=== PATIENT | male | born 1945 | race Caucasian/White ===

== ENCOUNTER 2017-05-29 07:45 | Day surgery (SDC) | payer OTHER ==
[~2017-05-29] VITALS: Ht 177.8 cm; Wt 98.0 kg
[~2017-05-29 07:45] MED LIST: ACTOPLUS MET1 TABLE1 PO; ADULT LOW DOSE81 M1 PO; ALTACE10 MG PO; AMLODIPINE BESYL5 MG PO; ASPIR-LOW81 MG PO; CRESTOR10 MG PO; Dilaudid PO; GLIMEPIRIDE4 MG PO; GLIPIZIDE10 M1 PO; IMDUR60 MG PO; ISOSORBIDE MONO30 MG PO; JANUVIA100 MG PO; METFORMIN HCL500 MG PO; METFORMIN PO; METOPROLOL TAR100 MG PO; NITROSTAT0.4 MG SL; PANTOPRAZOLE SO40 MG PO; PIOGLITAZONE PO; PLAVIX75 MG PO; TRADJENTA5 MG PO; ZETIA10 MG PO
[2017-05-29 16:20] VITALS: BP 159/95
[2017-05-29 17:41] VITALS: BP 144/75
[2017-05-29 21:13] VITALS: BP 147/75
[2017-05-30 00:17] VITALS: BP 118/57
[2017-05-30 05:27] LABS: BASOPHIL (%) 0.2 % (0-1); EOSINOPHIL (%) 2.2 % (0-5); EOSINOPHIL COUNT 0.1 K/uL (0-0.3); HEMATOCRIT 33.6 % (38.0-50.0); HEMOGLOBIN 11.4 G/DL (12.5-16.6); IMMATURE GRANULOCYTE (%) 0.2 % (0.0-0.7); LYMPHOCYTE (%) 24.9 % (15-42); MCH 29.5 PG (29.0-34.0); MCHC 33.9 G/DL (30.0-36.0); MCV 86.8 FL (86-99); MONOCYTE (%) 9.4 % (3-12); MONOCYTE COUNT 0.4 K/uL (0-0.8); NEUTROPHIL (%) 63.1 % (45-76); NEUTROPHIL COUNT 2.6 K/uL (1.8-6.4); PLATELET COUNT 150 K/uL (156-360); RBC DIS.WIDTH-CV 13.1 % (11.8-14.6); RBC DIS.WIDTH-SD 41.1 % (39-53); RED BLOOD COUNT 3.87 M/uL (4.00-5.50); WHITE BLOOD COUNT 4.1 K/uL (4.1-10.2)
[2017-05-30 05:55] LABS: CHLORIDE 108 MEQ/L (99-109); CREATININE 1.1 MG/DL (0.6-1.3); GFR ESTIMATE (CALCULATED) > 59 mL/min/ (58.99-99999); GLUCOSE 105 mg/dL (70-99); POTASSIUM 4.2 MEQ/L (3.7-5.4); SODIUM 139 MEQ/L (136-147); UREA NITROGEN (BUN) 17 mg/dL (9-23)
[2017-05-30 05:58] VITALS: BP 133/63
[2017-05-30 09:06] VITALS: BP 169/74
[2017-05-30] MEDS ORDERED: LOPRESSOR50 MG PO (10:15)
== END 2017-05-30 11:24 | disposition home or self-care (01) ==
LOC: CATH 07:45 → 2SOUTH 13:29 → 4EAST 13:29 → 2SOUTH 13:29 → ENRESERV 13:35 → 4EAST 16:06
PROVIDERS: Internal Medicine Cardiovascular Disease
DX: I25.10 Atherosclerotic heart disease of native coronary artery without angina pectoris (principal); E11.9 Type 2 diabetes mellitus without complications; I10 Essential (primary) hypertension; E78.5 Hyperlipidemia, unspecified; I35.0 Nonrheumatic aortic (valve) stenosis; I49.3 Ventricular premature depolarization; Z95.1 Presence of aortocoronary bypass graft; Z79.02 Long term (current) use of antithrombotics/antiplatelets; Z79.82 Long term (current) use of aspirin; Z79.84 Long term (current) use of oral hypoglycemic drugs
CPT/HCPCS: 80048; 82948; 85025; 85347; 93005; C1725; C1769; C1874; C1887; G0378; J1644; J1815; J2250; J3010; J7030